=== PATIENT | female | born 1950 | race Caucasian/White ===

== ENCOUNTER 2019-08-04 11:23 | Emergency (ER) | payer OTHER ==
[~2019-08-04] VITALS: Ht 167.6 cm; Wt 54.4 kg
[~2019-08-04 11:23] MED LIST: TESSALON PERLE100 M1 PO; TUSNEL DIABETI118 ML PO
[2019-08-04] MEDS ORDERED: JAKAFI20 MG PO (11:36)
== END 2019-08-04 13:31 | disposition home or self-care (01) ==
LOC: ER 11:23
DX: S30.0XXA Contusion of lower back and pelvis, initial encounter (principal); M54.5 Low back pain; W18.09XA Striking against other object with subsequent fall, initial encounter; Y93.89 Activity, other specified; Y92.012 Bathroom of single-family (private) house as the place of occurrence of the external cause; Y99.8 Other external cause status